=== PATIENT | male | born 1945 | race Caucasian/White ===

== ENCOUNTER 2016-12-17 13:32 | Outpatient (CLI) | payer OTHER ==
--- NOTE | 2016-12-17 17:35 | DIAGNOSTIC IMAGING REPORT ---
PROCEDURE: US ART LOWER EXT WITH JARVIS-B/L INDICATION: Lower extremity cramping. Assess for arterial insufficiency. Hypertension. Diabetes. TECHNIQUE: Preexercise ABIs were performed. The patient was exercised (toe-ups) and postexercise ABIs were repeated followed by color Doppler duplex imaging of the lower extremities. COMPARISON: None. FINDINGS: RIGHT LOWER EXTREMITY: ABIs: Pre exercise ABIs are normal (posterior tibial 1.2, dorsalis pedis 0.9), and are not significantly changed following exercise (posterior tibial 1.2, dorsalis pedis 1.3). VESSELS: There are moderate to marked calcified atheromatous changes throughout the right lower extremity arterial vascular system. RIGHT LOWER EXTREMITY PEAK SYSTOLIC VELOCITIES: Common femoral artery: Biphasic 115 cm/second. Profunda femoral artery: Biphasic 91 cm/second. Proximal superficial femoral artery: Biphasic 90 cm/second. Mid superficial femoral artery: Biphasic 129 cm/second. Distal superficial femoral artery: Biphasic 62 cm/second. Popliteal artery: Triphasic 51 cm/second. Proximal posterior tibial artery: Biphasic 85 cm/second. Proximal anterior tibial artery: Biphasic 52 cm/second. Peroneal artery: 30 cm/second. Distal posterior tibial artery: Triphasic 91 cm/second. Dorsalis pedis artery: Triphasic 62 cm/second. LEFT LOWER EXTREMITY: ABIs: Pre exercise ABIs are normal (posterior tibial 1.0, dorsalis pedis 0.9), and are minimally changed following exercise (posterior tibial 1.1, dorsalis pedis 1.0). VESSELS: There are moderate to marked calcified atheromatous changes of the left lower extremity arterial vascular system. LEFT LOWER EXTREMITY PEAK SYSTOLIC VELOCITIES: Common femoral artery: Biphasic 146 cm/second. Profunda femoral artery: Biphasic 109 cm/second. Proximal superficial femoral artery: Biphasic 164 cm/second. Mid superficial femoral artery: Biphasic 318 cm/second. Distal superficial femoral artery: Biphasic 116 cm/second. Popliteal artery: Biphasic 65 cm/second. Proximal posterior tibial artery: Biphasic 66 cm/second. Proximal anterior tibial artery: Biphasic 37 cm/second. Peroneal artery: 27 cm/second. Distal posterior tibial artery: Biphasic 82 cm/second. Dorsalis pedis artery: Biphasic 66 cm/second. IMPRESSION: 1. Moderate to marked calcified atheromatous changes of the lower extremity arterial vascular system. 2. There is no evidence of significant pre or postexercise arterial insufficiency of the lower extremities (based on a ABIs). 3. Borderline high-grade stenosis of the left mid superficial femoral artery (50-99%).
== END 2016-12-17 23:00 ==
LOC: US SRH 13:32
DX: I70.208 Unspecified atherosclerosis of native arteries of extremities, other extremity (principal); E11.9 Type 2 diabetes mellitus without complications; I10 Essential (primary) hypertension